=== PATIENT | female | born 1970 | race Caucasian/White ===

== ENCOUNTER → 2016-12-12 | Outpatient (CLI) | payer MEDICAID ==
[~2016-12-12] MED LIST: BUPROPION HYDR150 M1 PO; CYCLOBENZ5 MG PO; FLEXERIL10 MG PO; HYDROCODONE-APA1 TA1 PO; KEFLEX 500MG.500 MG PO; LORTAB 5/500 501 TAB PO; MEDROL 4MG. DOSE4 MG PO; NOMEDS *; NORCO 325 MG-51 TAB PO; PROMETHAZINE D118 ML PO; PROVENTIL0.09 MG/A1 IH; VICODIN 5/500 T1 TAB PO; VOLTAREN75 MG PO; ZITHROMAX Z PA250 MG PO
--- NOTE | 2016-12-12 09:40 | CARDIOVASCULAR REPORT ---
"Cerebrovascular Exam Indications: 785.9 Bruit. IMPRESSIONS 1. The bilateral vertebral arteries are patent with normal antegrade flow. 2. Study suggests 20% stenosis involving the right internal carotid artery. 3. Study suggests 70-99% stenosis involving the left internal carotid artery. History: Risk factors: Current tobacco use. Carotid duplex study. Complete study and Doppler flow study including spectral analysis, color and maldonado scale imaging. Height: Height: 162.6cm. Height: 64in. Weight: Weight: 58.1kg. Weight: 127.7lb. Body mass index: BMI: 22kg/m^2. Body surface area: BSA: 1.62m^2. Location: Vascular laboratory. Patient status: Outpatient. Tables: Arterial flow: + +--------+--------+ |Location |V sys |V ed | + +--------+--------+ |Right CCA - proximal|103cm/s |26.7cm/s| + +--------+--------+ |Right CCA - distal |99.8cm/s|42.4cm/s| + +--------+--------+ |Right ECA |115cm/s |--------| + +--------+--------+ |Right ICA - proximal|88.8cm/s|40.1cm/s| + +--------+--------+ |Right ICA - mid |105cm/s |49.5cm/s| + +--------+--------+ |Right ICA - distal |133cm/s |65.2cm/s| + +--------+--------+ |Right vertebral |73.9cm/s|--------| + +--------+--------+ |Left CCA - proximal |102cm/s |32.2cm/s| + +--------+--------+ |Left CCA - distal |103cm/s |44.8cm/s| + +--------+--------+ |Left ECA |141cm/s |--------| + +--------+--------+ |Left ICA - proximal |178cm/s |81.4cm/s| + +--------+--------+ |Left ICA - mid |236cm/s |105cm/s | + +--------+--------+ |Left ICA - distal |177cm/s |81.4cm/s| + +--------+--------+ |Left vertebral |52.4cm/s|--------| + +--------+--------+ Velocity ratios: + + + + + + | |Right, V sys|Right, V ed|Left, V sys|Left, V ed| + + + + + + |Max ICA/dist CCA|1.33 |1.54 |2.29 |2.34 | + + + + + + (Report amended ) Electronically signed by: Koko Carvajal [id number]"
--- NOTE | 2016-12-12 17:43 | RADIOLOGY REPORT PS360 ---
PROCEDURE: 2-D M-mode and color Doppler study INDICATIONS FOR THE TEST: Chest pain COPD Heart Murmur Tobacco Smoking+ Palpitations+ Fatigue Syncope Edema Hypertension Diabetes Mellitus Rheumatic Fever SOB BILLS Obesity Hyperlipidemia Family History HD+ Additional History PATIENT INFORMATION HEIGHT: 64 WEIGHT:128 GENDER: Female B/P:119/84 2-D/M-MODE INTERPRETATION: 2-D MEASUREMENTS OBSERVED VALUES IN CMS Right Ventricular Dimension (RVDd) 1.8 Interventricular Septum (Thickness)(IVsd) 0.6 Left Ventricular Internal Dimensions(LVIDd) 4.7 Left Ventricular Posterior Wall (Thickness)(LVPWd) 1.1 Aortic Root 2.1 Aortic Cusp Separation 1.6 Left Atrial Dimensions (LAD) 3.5 2D 1. Left atrium is normal size, left ventricle is normal size, there is no concentric left ventricular hypertrophy, visually estimated ejection fraction 55% with no obvious regional wall motion abnormality. 2. The right atrium and right ventricle are normal size and contractility. 3. The aortic valve is minimally thickened and fibrosed. 4. The mitral and tricuspid valve are grossly normal. 5. The pulmonic valve is poorly visualized. 6. No significant pericardial effusion noted. DOPPLER INTERROGATION: Doppler interrogation of the aortic mitral and tricuspid valvular presence of mild mitral and tricuspid regurgitation, tricuspid and jet velocity insufficient for calculation of right ventricular systolic pressure, diastolic parameters are within normal range. CONCLUSION: 1. Normal left ventricular size, preserved left ventricular systolic function, visually estimated ejection fraction of 55% with no obvious regional wall motion abnormality, diastolic parameters are within normal range. 2. Mild mitral and tricuspid regurgitation seen. 3. No significant pericardial effusion noted.
--- NOTE | 2016-12-13 09:25 | RADIOLOGY REPORT PS360 ---
CT CALCIUM SCORING W/3D TOB USE, CAROTID BRUIT, PALP, DIZZINESS, HX ASHD Smoker. 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 Borderline/mild central airway thickening. Lungs only partially imaged is a study was designed for survey of heart and calcium scoring low-dose technique.. Mild dextroscoliosis T-spine noted IMPRESSION: Calcium score = 0. No identifiable atherosclerotic plaque. Correlates with Very low cardiovascular disease risk . Suggestion mild developing emphysematous changes submitted limited views of lungs noted
== END ==
LOC: RAD 08:00
DX: R00.2 Palpitations (principal); I65.23 Occlusion and stenosis of bilateral carotid arteries; R42 Dizziness and giddiness; Z72.0 Tobacco use; Z82.49 Family history of ischemic heart disease and other diseases of the circulatory system

== ENCOUNTER → 2016-12-16 | Outpatient (CLI) | payer MEDICAID | LOC: RT 07:55 | DX: R00.2 Palpitations (principal); I65.23 Occlusion and stenosis of bilateral carotid arteries; R42 Dizziness and giddiness; Z72.0 Tobacco use; Z82.49 Family history of ischemic heart disease and other diseases of the circulatory system ==

== ENCOUNTER 2017-01-09 07:38 | Day surgery (SDC) | payer MEDICAID ==
[2017-01-09 08:05] LABS: HEMOGLOBIN 15.9 g/dL (12.2-16.2)
[2017-01-09 08:06] LABS: LYMPH # 3.2 K/mm3 (0.7-4.5); LYMPH % 20.1 % (10-50.0)
[2017-01-09 08:10] LABS: BUN 18 mg/dL (7-18); GFR (ESTIMATED) 78 ML/MIN (59-)
[2017-01-09 08:24] LABS: NEUTROPHILS 64 % (42-76)
--- NOTE | 2017-01-09 11:02 | RADIOLOGY REPORT PS360 ---
CARDIAC CATHETERIZATION DATE OF CATHETERIZATION:01/09/2017 9:49 AM PROCEDURES: 1. Left heart catheterization 2. Left ventriculogram 3. Selective coronary angiogram 4. Catheter placement in the right vertebral artery 5. Right vertebral artery angiogram 6. Catheter placement in the right carotid artery 7. Right internal carotid artery angiogram 8. Right intracerebral internal carotid artery angiogram 9. Catheter placement left vertebral artery 10. Left vertebral artery angiogram 11. Catheter placement in the left carotid artery 12. Left internal carotid artery angiogram 13. Left intracerebral internal carotid artery angiogram INDICATION FOR TEST: 1. Abnormal stress test 2. Preoperative evaluation for anticipated carotid endarterectomy 3. Abnormal carotid noninvasive with 80-99% stenosis Informed consent was obtained prior to the procedure. COMPLICATIONS: None ESTIMATED BLOOD LOSS: Less than 10 ml. TECHNIQUE: One percent lidocaine was used to anesthetize the right groin. The right femoral artery was accessed via the Seldinger technique. A 4-[place] sheath was placed in the right femoral artery. Over 3 J-wire a JL 4 JR4 catheter were used to perform the heart catheterization left ventriculogram and selective coronary angiography. The JR4 catheter was used to selectively intubate the bilateral vertebral arteries as well as the bilateral carotid arteries. At the end of the procedure the apparatus was removed the patient was transferred to the postop holding area in stable condition for sheath removal ANGIOGRAPHIC RESULTS: 1. The left main artery normal 2. The left anterior descending artery mild luminal irregularities 3. The circumflex artery is a dominant vessel. The second obtuse marginal artery is 2.5 mm in diameter and has a proximal eccentric 60-70% stenosis 4. The right coronary artery is nondominant normal 5. The [place] ventriculogram reveals normal 65% 6. The left ventricular end-diastolic pressure 5 mmHg 7. The right vertebral artery is widely patent 8. The left vertebral artery is widely patent 9. The right common carotid artery is widely patent 10. The right internal carotid artery has mild luminal irregularities 11. Right intracerebral vasculature is free of atherosclerotic plaque or aneurysmal dilatation. The right hemisphere supplied 12. The left common carotid artery is widely patent 13. The left internal carotid artery has a very proximal highly eccentric 50-60% stenosis 14. The left intracerebral carotid vasculature is free of atherosclerotic plaque or aneurysmal dilatation and supplies the left hemisphere IMPRESSION: 1. Moderate coronary artery disease in the largest of the obtuse marginal arteries off the dominant circumflex artery 2. Normal ejection fraction 3. Normal left ventricular end-diastolic pressure 4. Moderate left internal carotid artery stenosis 5. Normal vertebral arteries bilaterally 6. Normal bilateral intracerebral internal arteries 7. Mild right internal carotid artery disease PLAN: 1. I favor medical management for both her carotid disease and her coronary artery disease 2. Most importantly she requires absolute tobacco cessation. 3. LDL less than 55 4. Aspirin 81 mg daily 5. Risk factor modification 6. As long as patient remains asymptomatic from a carotid artery standpoint I would not recommend preventative or prophylactic carotid endarterectomy in a female patient especially one such small physical stature. There is no study to support asymptomatic females and affect from carotid endarterectomy whatever they do have a higher likelihood of complications of surgery
[2017-01-09 13:54] VITALS: BP 138/80
== END 2017-01-09 13:45 | disposition home or self-care (01) ==
LOC: CATHLAB 07:38
PROVIDERS: Internal Medicine
PROC: 4A023N7 Measurement of Cardiac Sampling and Pressure, Left Heart, Percutaneous Approach (ICD-10-PCS; principal; 2017-01-09)
PROC: B2111ZZ Fluoroscopy of Multiple Coronary Arteries using Low Osmolar Contrast (ICD-10-PCS; 2017-01-09)
PROC: B2151ZZ Fluoroscopy of Left Heart using Low Osmolar Contrast (ICD-10-PCS; 2017-01-09)
PROC: B3181ZZ Fluoroscopy of Bilateral Internal Carotid Arteries using Low Osmolar Contrast (ICD-10-PCS; 2017-01-09)
PROC: B31G1ZZ Fluoroscopy of Bilateral Vertebral Arteries using Low Osmolar Contrast (ICD-10-PCS; 2017-01-09)
DX: I25.10 Atherosclerotic heart disease of native coronary artery without angina pectoris (principal); R94.39 Abnormal result of other cardiovascular function study; I65.22 Occlusion and stenosis of left carotid artery

== ENCOUNTER → 2017-01-13 | Outpatient (CLI) | payer MEDICAID ==
[2017-01-13 15:35] LABS: HEMOGLOBIN 15.2 g/dL (12.2-16.2)
[2017-01-13 15:36] LABS: LYMPH # 2.8 K/mm3 (0.7-4.5); LYMPH % 28.3 % (10-50.0)
[2017-01-13 17:20] LABS: BUN 10 mg/dL (7-18); GFR (ESTIMATED) 90 ML/MIN (59-)
[2017-01-15 08:49] LABS: Vitamin B12 472 pg/mL (211-946)
[2017-01-18 14:36] LABS: 1,25-Dihydroxy, Vitamin D-2 <10 pg/mL (.); 1,25-Dihydroxy, Vitamin D-3 33 pg/mL (.); Total 1,25-Dihydroxy,Vitamin D 35 pg/mL (.)
== END ==
LOC: LAB 15:03
PROVIDERS: Nurse Practitioner Family
DX: R35.0 Frequency of micturition (principal); R53.83 Other fatigue

== ENCOUNTER → 2017-02-02 | Outpatient (CLI) | payer MEDICAID ==
[2017-02-02 11:33] LABS: BILIRUBIN, INDIRECT 0.15 mg/dL (0-0.9)
== END ==
LOC: LAB 08:00
PROVIDERS: Internal Medicine Cardiovascular Disease
DX: I25.10 Atherosclerotic heart disease of native coronary artery without angina pectoris (principal); I65.23 Occlusion and stenosis of bilateral carotid arteries; E78.5 Hyperlipidemia, unspecified; Z72.0 Tobacco use